=== PATIENT | male | born 1940 | race Caucasian/White ===

== ENCOUNTER 2020-02-06 17:57 | Observation (INO) | payer MEDICARE, SELFPAY ==
[2020-02-06 18:16] VITALS: BMI 28.0
[2020-02-06 18:22] VITALS: BP 160/84; PULSE 85; RESP 20; TEMP 37.1; O2SAT 90
[2020-02-06 18:45] VITALS: O2SAT 90
[2020-02-06 19:20] VITALS: BP 156/85; PULSE 96; RESP 20; TEMP 36.6; O2SAT 90
[2020-02-06 20:00] VITALS: PULSE 96; O2SAT 90
[2020-02-06 20:55] LABS: Coronavirus 19 IgG Antibody Positive (Negative); Coronavirus 19 IgM Antibody Negative (Negative)
[2020-02-06 22:24] LABS: POC Glucose,Bedside 175 (70-110)
[2020-02-07 04:00] VITALS: BP 152/82; PULSE 66; RESP 18; TEMP 36.7; O2SAT 91
[2020-02-07 04:49] VITALS: BMI 27.7
[2020-02-07 06:30] LABS: POC Glucose,Bedside 98 (70-110)
[2020-02-07 06:41] LABS: Basophils # 0.1 K/mm3 (0-0.2); Basophils % 0.5 % (0.1-2.0); Eosinophils # 0.7 K/mm3 (0.0-0.4); Eosinophils % 7.3 % (0.1-12.0); Hematocrit 37.1 % (42.0-52.0); Hemoglobin 11.1 g/dL (14.1-18.0); Lymphocytes # 1.9 K/mm3 (0.7-4.5); Lymphocytes % 19.4 % (10-50); Mean Corpuscular HGB Conc 29.9 g/dL (31.8-35.4); Mean Corpuscular Volume 86.7 fl (80-94); Mean Platelet Volume 8.3 fl (7.4-10.4); Monocytes # 0.9 K/mm3 (0.1-1.0); Monocytes % 9.6 % (1.7-9.3); Neutrophils # 6.1 K/mm3 (1.8-7.8); Neutrophils % 63.2 % (37.0-80.0); Platelet Count 220 K/mm3 (142-424); Red Blood Count 4.28 M/mm3 (4.60-6.20); Red Cell Distribution Width 15.3 % (11.5-17.5); White Blood Count 9.6 K/mm3 (4.8-10.8)
[2020-02-07 06:43] LABS: Chloride 107 mmol/L (98-107); Potassium 3.8 mmoL/L (3.5-5.1); Sodium 140 mmol/L (136-145)
[2020-02-07 06:46] LABS: Anion Gap 9.8 mEq/L (5-15); Blood Urea Nitrogen 26 mg/dl (9-20); Carbon Dioxide 27 mmol/L (22.0-30.0); Creatinine Clearance Estimated 58 mL/min (50-200); Estimated Glomerular Filt Rate 53 ml/min (>60); GFR (African American) 65 ML/MIN (>60)
[2020-02-07 06:47] LABS: Calcium 8.4 mg/dl (8.4-10.2); Glucose 97 mg/dl (74-100)
--- NOTE | 2020-02-07 07:19 | P.CONPHA_ITS ---
[facility] Pharmacy VTE Monitoring - Patient Demographics Admission date: 02/06/20 Report Date: 02/07/20 Time: 07:19 Allergies/Adverse Reactions: Patient Allergies No Known Allergies Allergy (Verified 02/06/20 18:48) Height: 1.78 m Weight: 87.798 kg - VTE Risk Labs: VTE Related Lab Results Hgb 11.1 g/dL (14.1-18.0) L 02/07/20 06:18 Hct 37.1 % (42.0-52.0) L 02/07/20 06:18 Plt Count 220 K/mm3 (142-424) 02/07/20 06:18 BUN 26 mg/dl (9-20) H 02/07/20 06:18 Creatinine 1.30 mg/dl (0.66-1.25) H 02/07/20 06:18 Estimated Creat Clear 58 mL/min (50-200) 02/07/20 06:18 Was VTE Risk Assessment Performed: Yes VTE Score: 2 VTE Risk Level: Very Low Risk - Prophylaxis VTE Prophylaxis Ordered?: Yes Types of VTE Prophylaxis: TEDS Knee High Location of Applied Device: Bilateral Lower Extremeties
[2020-02-07 07:24] VITALS: RESP 19; O2SAT 93
[2020-02-07 07:29] VITALS: O2SAT 93
--- NOTE | 2020-02-07 07:45 | PC.NURSE ---
Pt is A&Ox4. Lung sounds clear t/o. Pt has tolerated RA appropriately but did request 2LNC for comfort in the middle of the shift. Pt has c/o mild rib pain x1 this shift with movement. PRN pain meds administered per APR. Active bowel sounds in all 4 quads. No other acute changes or complaints at this time. Will continue to monitor.
[2020-02-07 07:56] VITALS: BP 155/73; PULSE 71; RESP 20; TEMP 36.7; O2SAT 90
--- NOTE | 2020-02-07 08:45 | XR_ITS ---
PROCEDURE: XR CHEST 2V CLINICAL HISTORY: rib fracture, r/o pneumonia COMPARISON: No exams were available for comparison FINDINGS: The cardiomediastinal silhouette and pulmonary vascularity are within normal limits. There are atelectatic changes in the right lung base. Pleural thickening noted in the right midlung. There is mild ankylosis of the thoracic spine with minimal wedging of T7-T8 and T9 IMPRESSION: Right lower lobe atelectasis. Pleural thickening in the right midlung. Dictated by: Sabino Shelton MD 02/07/2020 16:03 Sabino Shelton MD in OV 02/07/2020 16:03
--- NOTE | 2020-02-07 08:56 | PC.NURSE ---
PT ROOM AIR SAT 88% O2 REAPPLIED
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
[2020-02-07 10:00] VITALS: O2SAT 88
[2020-02-07 10:18] VITALS: O2SAT 88
[2020-02-07 12:41] LABS: POC Glucose,Bedside 215 (70-110)
[2020-02-07 12:41] LABS: POC Glucose,Bedside 132 (70-110)
--- NOTE | 2020-02-07 13:07 | SW/DCPLANNER ---
Addendum entered by Ni Bentley 02/07/20 13:39: Qian Landaverde has stated that portable O2 tank will be delivered and home concentrator will be set up. Original Note: Patient information and order for home oxygen + portable tank has been faxed to [facility]. I will follow up with Akhil once patient information/order is reviewed. Patient will discharge home today.
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
== END 2020-02-07 14:38 | disposition home or self-care (01) ==
PROVIDERS: Family Medicine; Admitting Provider Family Medicine; Visit Provider Family Medicine
DX: S22.42XA Multiple fractures of ribs, left side, initial encounter for closed fracture (principal); E11.9 Type 2 diabetes mellitus without complications; I10 Essential (primary) hypertension; E03.9 Hypothyroidism, unspecified; I25.10 Atherosclerotic heart disease of native coronary artery without angina pectoris; Z87.891 Personal history of nicotine dependence; Z79.82 Long term (current) use of aspirin; Z79.84 Long term (current) use of oral hypoglycemic drugs; Z79.899 Other long term (current) drug therapy
CPT/HCPCS: G0379; 36415; 71046; 80048; 82962; 85025; 86328; 94761; G0378